=== PATIENT | female | born 1965 | race American Indian/Alaskan Native ===

== ENCOUNTER 2017-04-09 23:05 | Emergency (ER) | payer OTHER ==
[2017-04-10 00:59] LABS: Alanine Aminotransferase 16 units/L (7-56); Albumin 3.7 g/dL (3.9-5); Alkaline Phosphatase 104 units/L (35-129); Anion Gap 16 mmol/L; BUN/Creatinine Ratio 10; Blood Urea Nitrogen 10 mg/dL (7-17); Calcium 8.9 mg/dL (8.4-10.2); Carbon Dioxide 25 mmol/L (22-30); Chloride 100.2 mmol/L (98-107); Glucose 126 mg/dL (65-100); Lipase 37 units/L (13-60); Potassium 4.2 mmol/L (3.6-5.0); Sodium 137 mmol/L (137-145); Total Protein 7.3 g/dL (6.3-8.2)
[2017-04-10 01:01] LABS: Basophils % (Auto) 0.5 % (0.0-1.8); Eosinophils % (Auto) 1.3 % (0.0-4.3); Hematocrit 40.8 % (30.3-42.9); Hemoglobin 13.1 gm/dl (10.1-14.3); Mean Corpuscular HGB Conc 32 % (30-34); Mean Corpuscular Hemoglobin 28 pg (28-32); Mean Corpuscular Volume 87 fl (79-97); Platelet Count 281 K/mm3 (140-440); Red Blood Count 4.68 M/mm3 (3.65-5.03); Red Cell Distribution Width 15.2 % (13.2-15.2); White Blood Count 8.2 K/mm3 (4.5-11.0)
[2017-04-10 04:49] LABS: Bilirubin,Urine SM (Negative); Blood,Urine SM (Negative); Ketones,Urine NEG (Negative); Leukocyte Esterase,Urine TR (Negative); Mucus,Urine 2+ /HPF; Nitrite,Urine NEG (Negative)
[2017-04-10] MEDS ORDERED: SUBLIMAZE IV ONE (11:57)
[2017-04-10] MEDS ORDERED: PEPCID IV ONE (11:57)
[2017-04-10] MEDS ORDERED: ZOFRAN IV ONE (11:57)
--- NOTE | 2017-04-10 12:05 | Emergency Department Report ---
HPI - General Chief Complaint: Recheck/Abnormal Lab/Rx Time Seen by Provider: 04/10/17 11:52 - HPI HPI: Room 18 The patient is a 52-year-old female presenting with a chief complaint of abdominal pain. The patient states her pain began during Thanksgiving (2016) and then improve the following day. However after improvement the pain returned the same day. Patient's current pain is sharp and constant in nature associated with nausea and vomiting. Patient denies any history of fever. Patient denies radiation of the abdominal pain. The patient rarely gives her pain score of 10/10 Location: Abdomen Duration: [See above] Quality: Sharp Severity:10/10 Modifying factors: [see above] Context: [see above] Mode of transportation: [not driving] ED Past Medical Hx - Past Medical History Previous Medical History?: Yes Hx Hypertension: Yes Additional medical history: hypothyroid - Surgical History Past Surgical History?: Yes Additional Surgical History: x1 - Family History Family history: no significant - Social History Smoking Status: Never Smoker Substance Use Type: Alcohol (occasional) - Medications Home Medications: Home Medications Medication Instructions Recorded Confirmed Last Taken Type Cephalexin [Keflex] 500 mg PO Q8HR #30 capsule 09/01/15 Unknown Rx Ibuprofen [Motrin] 600 mg PO Q8H PRN #15 tablet 09/01/15 Unknown Rx traMADol [Ultram] 50 mg PO Q6HR PRN #20 tablet 09/04/15 Unknown Rx Famotidine [Pepcid] 20 mg PO BID #30 tablet 04/10/17 Unknown Rx Promethazine [Phenergan TAB] 25 mg PO Q6HR PRN #20 tab 04/10/17 Unknown Rx Promethazine [Phenergan] 25 mg SD Q6HR PRN #5 supp.rect 04/10/17 Unknown Rx traMADol [Ultram] 50 mg PO Q6HR PRN #14 tablet 04/10/17 Unknown Rx ED Review of Systems ROS: Stated complaint: ABDOMINAL PAIN,NAUSEA Other details as noted in HPI Constitutional: denies: fever ENT: other (no rhinorrhea) Endocrine: denies: unexplained weight loss Gastrointestinal: abdominal pain, nausea, vomiting. denies: diarrhea Genitourinary: denies: dysuria, hematuria Musculoskeletal: denies: back pain Physical Exam - Physical Exam Vital Signs: Vital Signs 04/10/17 04/10/17 04/10/17 00:05 02:05 05:46 Temperature 98.3 F 98.3 F 97.8 F Pulse Rate 87 79 77 Respiratory 18 20 18 Rate Blood Pressure 126/87 138/86 119/82 O2 Sat by Pulse 96 96 97 Oximetry Physical Exam: GENERAL: The patient is well-developed well-nourished female lying on stretcher not appearing to be in acute distress. [] HEENT: Normocephalic. Atraumatic. Extraocular motions are intact. Patient has moist mucous membranes. NECK: Supple. Trachea midline CHEST/LUNGS: Clear to auscultation. There is no respiratory distress noted. HEART/CARDIOVASCULAR: Regular. There is no tachycardia. There is no gallop rub or murmur. ABDOMEN: Abdomen is soft, with moderate discomfort to palpation in the midepigastric region. There is no rebound or guarding. Patient has normal bowel sounds. There is no abdominal distention. Absent Brown sign SKIN: There is no rash. There is no edema. There is no diaphoresis. NEURO: The patient is awake, alert, and oriented. The patient is cooperative. The patient has normal speech MUSCULOSKELETAL: There is no evidence of acute injury. ED Course Vital Signs 04/10/17 04/10/17 04/10/17 00:05 02:05 05:46 Temperature 98.3 F 98.3 F 97.8 F Pulse Rate 87 79 77 Respiratory 18 20 18 Rate Blood Pressure 126/87 138/86 119/82 O2 Sat by Pulse 96 96 97 Oximetry ED Medical Decision Making - Lab Data Result diagrams: 04/10/17 00:31 04/10/17 00:31 Laboratory Tests 04/10/17 04/10/17 04/10/17 00:31 00:31 00:31 WBC 8.2 RBC 4.68 Hgb 13.1 Hct 40.8 MCV 87 MCH 28 MCHC 32 RDW 15.2 Plt Count 281 Lymph % (Auto) 21.3 [place] % (Auto) 9.8 H Eos % (Auto) 1.3 Baso % (Auto) 0.5 Lymph # 1.7 [place] # 0.8 Eos # 0.1 Baso # 0.0 Seg Neutrophils % 67.1 Seg Neutrophils # 5.5 Sodium 137 Potassium 4.2 Chloride 100.2 Carbon Dioxide 25 Anion Gap 16 BUN 10 Creatinine 1.0 Estimated GFR > 60 BUN/Creatinine Ratio 10 Glucose 126 H Calcium 8.9 Total Bilirubin 0.30 AST 22 ALT 16 Alkaline Phosphatase 104 Total Creatine Kinase 367 H CK-MB (CK-2) 3.3 CK-MB (CK-2) Rel Index 0.8 Troponin T < 0.010 Total Protein 7.3 Albumin 3.7 L Albumin/Globulin Ratio 1.0 Lipase 37 Urine Color Urine Turbidity Urine pH Ur Specific [place] Urine Protein Urine Glucose (UA) Urine Ketones Urine Blood Urine Nitrite Ur Reducing Substances Urine Bilirubin Urine Ictotest Urine Urobilinogen Ur Leukocyte Esterase Urine WBC (Auto) Urine RBC (Auto) U Epithel Cells (Auto) Calcium Oxalate Crystal Amorphous Crystals Hyaline Casts Urine Mucus Urine HCG, Qual 04/10/17 Unknown WBC RBC Hgb Hct MCV MCH MCHC RDW Plt Count Lymph % (Auto) [place] % (Auto) Eos % (Auto) Baso % (Auto) Lymph # [place] # Eos # Baso # Seg Neutrophils % Seg Neutrophils # Sodium Potassium Chloride Carbon Dioxide Anion Gap BUN Creatinine Estimated GFR BUN/Creatinine Ratio Glucose Calcium Total Bilirubin AST ALT Alkaline Phosphatase Total Creatine Kinase CK-MB (CK-2) CK-MB (CK-2) Rel Index Troponin T Total Protein Albumin Albumin/Globulin Ratio Lipase Urine Color [place] Urine Turbidity Clear Urine pH 5.0 Ur Specific [place] 1.032 H Urine Protein 100 mg/dl Urine Glucose (UA) Neg Urine Ketones Neg Urine Blood Sm Urine Nitrite Neg Ur Reducing Substances Not Reportable Urine Bilirubin Sm Urine Ictotest Negative Urine Urobilinogen 2.0 Ur Leukocyte Esterase Tr Urine WBC (Auto) 7.0 H Urine RBC (Auto) 6.0 U Epithel Cells (Auto) 5.0 Calcium Oxalate Crystal 2+ Amorphous Crystals Few Hyaline Casts 15 Urine Mucus 2+ Urine HCG, Qual Negative - EKG Data -: EKG Interpreted by Sd EKG shows normal: sinus rhythm Rate: normal - EKG Data When compared to previous EKG there are: previous EKG unavailable Interpretation: nonspecific ST-T wave yang (T-wave inversion in lead 3) - Radiology Data Radiology results: report reviewed (CT abdomen and pelvis), image reviewed (CT abdomen and pelvis) CT ABDOMEN AND PELVIS WITH CONTRAST: 04/09/17 23:05:00 CLINICAL: Epigastric abdominal pain. COMPARISON: None. TECHNIQUE: Volumetric acquisition and 1.25 millimeter scan reconstructions after the uneventful intravenous injection of 100 cc Omnipaque 300. Consent was obtained prior to the administration of contrast. Oral contrast was not given. FINDINGS: Abdomen: Normal liver, bile ducts and gallbladder. Normal stomach, duodenum, pancreas and spleen. Normal adrenal glands. Bilateral benign renal cysts in otherwise normal kidneys. A 5 cm cyst in the mid right kidney and a 1.5 cm left upper pole renal cyst. No urinary calculi or mass. The renal collecting systems and ureters are nondilated. Moderate atherosclerotic calcification of the aorta and iliac arteries. The inferior vena cava is normal. The small bowel is normal.Normal ascending, transverse and descending colon. An appendix is not identified. No mass, lymphadenopathy or ascites.No pneumoperitoneum. Pelvis: Normal urinary bladder.Small fibroid uterus with a dominant 3.8 cm partially calcified fundal fibroid. Ovaries are not well demonstrated. No adnexal mass or free fluid. Normal rectum and sigmoid colon. Bone windows demonstrate no bone lesion. IMPRESSION:1. Negative abdomen was bilateral benign renal cysts. 2. Small fibroid uterus. Otherwise normal pelvis. Transcribed By: REF Dictated By: EDWARD SHAY MD Electronically Authenticated By: EDWARD SHAY MD Signed Date/Time: 04/10/171411 DD/ 05 TD/TT: 04/10/171411 - Differential Diagnosis pancreatitis, gastritis, peptic ulcer disease, colitis, ACS Critical care attestation.: If time is entered above; I have spent that time in minutes in the direct care of this critically ill patient, excluding procedure time. ED Disposition Clinical Impression: Abdominal pain Disposition: DC-01 TO HOME OR SELFCARE Is pt being admited?: No Does the pt Need Aspirin: No Condition: Stable Instructions: Abdominal Pain (ED) Additional Instructions: Return to the emergency department immediately should you develop worsening symptoms, fever, inability to tolerate food or liquid or any other concerns. 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 Please follow-up with him for further evaluation) Time of Disposition: 14:25
[2017-04-10] MEDS ORDERED: NACL ONE (13:20)
[2017-04-10 14:09] LABS: Creatine Kinase 367 units/L (30-135); Creatine Kinase MB 3.3 ng/mL (0.0-4.0)
--- NOTE | 2017-04-10 14:18 | Cat Scan Report ---
CT ABDOMEN AND PELVIS WITH CONTRAST: 04/09/17 23:05:00 CLINICAL: Epigastric abdominal pain. COMPARISON: None. TECHNIQUE: Volumetric acquisition and 1.25 millimeter scan reconstructions after the uneventful intravenous injection of 100 cc Omnipaque 300. Consent was obtained prior to the administration of contrast. Oral contrast was not given. FINDINGS: Abdomen: Normal liver, bile ducts and gallbladder. Normal stomach, duodenum, pancreas and spleen. Normal adrenal glands. Bilateral benign renal cysts in otherwise normal kidneys. A 5 cm cyst in the mid right kidney and a 1.5 cm left upper pole renal cyst. No urinary calculi or mass. The renal collecting systems and ureters are nondilated. Moderate atherosclerotic calcification of the aorta and iliac arteries. The inferior vena cava is normal. The small bowel is normal.Normal ascending, transverse and descending colon. An appendix is not identified. No mass, lymphadenopathy or ascites.No pneumoperitoneum. Pelvis: Normal urinary bladder.Small fibroid uterus with a dominant 3.8 cm partially calcified fundal fibroid. Ovaries are not well demonstrated. No adnexal mass or free fluid. Normal rectum and sigmoid colon. Bone windows demonstrate no bone lesion. IMPRESSION:1. Negative abdomen was bilateral benign renal cysts. 2. Small fibroid uterus. Otherwise normal pelvis.
[2017-04-10 14:49] VITALS: BP 130/70
== END 2017-04-10 14:50 | disposition home or self-care (01) ==
LOC: ED 23:05
DX: R10.9 Unspecified abdominal pain (principal); R11.2 Nausea with vomiting, unspecified; E03.9 Hypothyroidism, unspecified
CPT/HCPCS: 36415; 74177; 80053; 81001; 81025; 82550; 82553; 83690; 84484; 85025; 96374; 96375; 99284; J2405; J3010; Q9967

== ENCOUNTER 2018-01-19 21:26 | Inpatient (IN) | payer OTHER ==
[2018-01-19] MEDS ORDERED: ASPIRIN ONE (21:41)
[2018-01-19] MEDS ORDERED: NITROSTAT SL ONE (21:49)
--- NOTE | 2018-01-19 21:53 | Emergency Department Report ---
ED Chest Pain HPI - General Stated Complaint: CHEST PAIN Time Seen by Provider: 01/19/18 21:46 - History of Present Illness Initial Comments: Patient is a 52-year-old black female states that approximately 30 minutes prior to arrival she had acute onset of chest pressure. Patient states there is also shortness of breath or difficulty speaking. Patient states is a pressure-like sensation 8 out of 10 in severity. Patient states she's never had pain to this magnitude. Patient denies cough nausea vomiting or diaphoresis. She has a history of hypertension does not smoke. There is no significant past family history. Patient's surgical history is only a C- section. - Related Data Previous Rx's Medication Instructions Recorded Last Taken Type Ibuprofen [Motrin] 600 mg PO Q8H PRN #15 tablet 09/01/15 Unknown Rx cephALEXin [Keflex] 500 mg PO Q8HR #30 capsule 09/01/15 Unknown Rx traMADol [Ultram] 50 mg PO Q6HR PRN #20 tablet 09/04/15 Unknown Rx Famotidine [Pepcid] 20 mg PO BID #30 tablet 04/10/17 Unknown Rx Promethazine [Phenergan TAB] 25 mg PO Q6HR PRN #20 tab 04/10/17 Unknown Rx Promethazine [Phenergan] 25 mg DC Q6HR PRN #5 supp.rect 04/10/17 Unknown Rx traMADol [Ultram] 50 mg PO Q6HR PRN #14 tablet 04/10/17 Unknown Rx Allergies Allergy/AdvReac Type Severity Reaction Status Date / Time No Known Allergies Allergy Verified 09/01/15 15:06 Heart Score - HEART Score History: Moderately suspicious EKG: Non-specific Age: 45-65 Risk factors: 1-2 risk factors Troponin: < normal limit HEART Score: 4 ED Review of Systems ROS: Stated complaint: CHEST PAIN Other details as noted in HPI Comment: All other systems reviewed and negative ED Past Medical Hx - Past Medical History Hx Hypertension: Yes Additional medical history: hypothyroid - Surgical History Additional Surgical History: x1 - Social History Smoking Status: Never Smoker Substance Use Type: Alcohol (occasional) - Medications Home Medications: Home Medications Medication Instructions Recorded Confirmed Last Taken Type Ibuprofen [Motrin] 600 mg PO Q8H PRN #15 tablet 09/01/15 Unknown Rx cephALEXin [Keflex] 500 mg PO Q8HR #30 capsule 09/01/15 Unknown Rx traMADol [Ultram] 50 mg PO Q6HR PRN #20 tablet 09/04/15 Unknown Rx Famotidine [Pepcid] 20 mg PO BID #30 tablet 04/10/17 Unknown Rx Promethazine [Phenergan TAB] 25 mg PO Q6HR PRN #20 tab 04/10/17 Unknown Rx Promethazine [Phenergan] 25 mg DC Q6HR PRN #5 supp.rect 04/10/17 Unknown Rx traMADol [Ultram] 50 mg PO Q6HR PRN #14 tablet 04/10/17 Unknown Rx ED Physical Exam - General General appearance: alert, in no apparent distress, obese - Head Head exam: Present: atraumatic, normocephalic - Eye Eye exam: Present: normal appearance - ENT ENT exam: Present: mucous membranes moist - Neck Neck exam: Present: normal inspection - Respiratory Respiratory exam: Present: normal lung sounds bilaterally, respiratory distress (patient appears to be taking very shallow rapid breaths). Absent: wheezes, rales, rhonchi - Cardiovascular Cardiovascular Exam: Present: normal rhythm, tachycardia, normal heart sounds. Absent: systolic murmur, diastolic murmur, rubs, gallop - GI/Abdominal GI/Abdominal exam: Present: soft, normal bowel sounds. Absent: distended, tenderness, guarding, rebound - Extremities Exam Extremities exam: Present: normal inspection - Back Exam Back exam: Present: normal inspection - Neurological Exam Neurological exam: Present: alert, oriented X3 - Psychiatric Psychiatric exam: Present: normal affect, normal mood - Skin Skin exam: Present: warm, dry, intact, normal color. Absent: rash ED Course Vital Signs 01/19/18 01/19/18 01/19/18 21:30 21:58 22:01 Temperature 99.7 F H Pulse Rate 104 H 97 H 90 Respiratory 20 18 14 Rate Blood Pressure 177/86 O2 Sat by Pulse 99 100 98 Oximetry 01/19/18 01/19/18 01/19/18 22:15 22:31 22:45 Temperature Pulse Rate 84 94 H 91 H Respiratory 19 23 26 H Rate Blood Pressure 121/69 123/63 148/87 O2 Sat by Pulse 97 100 98 Oximetry SON score - Son Score Age > 65: (0) No Aspirin use within the Past 7 Days: (0) No 3 or more CAD Risk Factors: (0) No 2 or more Angina events in past 24 hrs: (0) No Known CAD with more than 50% Stenosis: (0) No Elevated Cardiac Markers: (0) No ST Deviation Greater than 0.5mm: (0) No SON Score: 0 ED Medical Decision Making - Lab Data Result diagrams: 01/19/18 21:55 01/19/18 21:55 - EKG Data -: EKG Interpreted by Me - EKG Data 01/19/18 23:52 EKG shows sinus tachycardia 103 normal axis normal intervals and no ST segment elevation or depressions there are Q waves in the septal leads patient is 2139 - Radiology Data Chest x-ray is within normal limits Ordering Physician: ILIANA ROWAN MD Date of Service: 01/19/18 Procedure(s) : CT angio chest Accession Number(s): [id number] cc: ILIANA ROWAN MD FINAL REPORT EXAM: CT ANGIO CHEST HISTORY: acute CP with sob, elevated ddimer TECHNIQUE: CT chest CT angiogram with reconstructions PRIORS: None. FINDINGS: There is no evidence of filling defect within the central pulmonary vasculature to suggest the presence of acute pulmonary embolus. No evidence of mediastinal pathologic lymph node enlargement Heart and great vessels are unremarkable. The aorta is normal in caliber. No focal pulmonary infiltrate identified. No pleural fluid collection seen. No acute pulmonary abnormality noted. Visualized portion of the upper abdomen demonstrates no acute change. IMPRESSION: Negative. No CT evidence of acute pulmonary embolus Transcribed By: CAYLA Dictated By: MIRA ALLISON MD Electronically Authenticated By: MIRA ALLISON MD Signed Date/Time: 01/19/18 6465 - Medical Decision Making Patient is a 52-year-old black female who has a heart score 4. Patient's chest discomfort is improved after nitroglycerin and blood pressure control. Patient ruled out for PE. Patient be admitted to hospitalist service for cardiac workup Critical Care Time: Yes (30) Critical care attestation.: If time is entered above; I have spent that time in minutes in the direct care of this critically ill patient, excluding procedure time. ED Disposition Clinical Impression: Chest pain Qualifiers: Chest pain type: unspecified Qualified Code(s): R07.9 - Chest pain, unspecified Disposition: OP ADMIT IP TO THIS HOSP Is pt being admited?: Yes Does the pt Need Aspirin: No Condition: Stable Instructions: Chest Pain (ED) Time of Disposition: 23:57
[2018-01-19] MEDS ORDERED: ASPIRIN PO ONE (21:59)
[2018-01-19 22:04] LABS: Basophils # (Auto) 0.1 K/mm3 (0.0-0.1); Basophils % (Auto) 1.2 % (0.0-1.8); Eosinophils # (Auto) 0.2 K/mm3 (0.0-0.4); Eosinophils % (Auto) 2.7 % (0.0-4.3); Hematocrit 36.3 % (30.3-42.9); Hemoglobin 11.7 gm/dl (10.1-14.3); Lymphocytes # (Auto) 2.3 K/mm3 (1.2-5.4); Lymphocytes % (Auto) 28.7 % (13.4-35.0); Mean Corpuscular HGB Conc 32 % (30-34); Mean Corpuscular Hemoglobin 28 pg (28-32); Mean Corpuscular Volume 87 fl (79-97); Monocytes # (Auto) 0.6 K/mm3 (0.0-0.8); Monocytes % (Auto) 8.2 % (0.0-7.3); Platelet Count 266 K/mm3 (140-440); Red Blood Count 4.17 M/mm3 (3.65-5.03); Red Cell Distribution Width 15.4 % (13.2-15.2)
[2018-01-19 22:15] LABS: INR 0.87 (0.87-1.13); Partial Thromboplastin Time 29.7 Sec. (24.2-36.6)
[2018-01-19] MEDS ORDERED: LOPRESSOR PO ONE (22:18)
--- NOTE | 2018-01-19 22:20 | XRay Report ---
FINAL REPORT EXAM: XR CHEST 1V AP HISTORY: Chest Pain TECHNIQUE: upright single view chest PRIORS: None. FINDINGS: Cardiac and mediastinal contours are unremarkable. No focal pulmonary infiltrate is identified. No pleural fluid collection seen. Pulmonary vasculature is unremarkable. Mild scarring noted at the left lower lobe distribution IMPRESSION: Negative single-view chest
[2018-01-19 22:23] LABS: BUN/Creatinine Ratio 16; Blood Urea Nitrogen 14 mg/dL (7-17); Calcium 9.6 mg/dL (8.4-10.2); Hemolysis Index 3
--- NOTE | 2018-01-19 23:36 | Cat Scan Report ---
FINAL REPORT EXAM: CT ANGIO CHEST HISTORY: acute CP with sob, elevated ddimer TECHNIQUE: CT chest CT angiogram with reconstructions PRIORS: None. FINDINGS: There is no evidence of filling defect within the central pulmonary vasculature to suggest the presence of acute pulmonary embolus. No evidence of mediastinal pathologic lymph node enlargement Heart and great vessels are unremarkable. The aorta is normal in caliber. No focal pulmonary infiltrate identified. No pleural fluid collection seen. No acute pulmonary abnormality noted. Visualized portion of the upper abdomen demonstrates no acute change. IMPRESSION: Negative. No CT evidence of acute pulmonary embolus
[2018-01-20] MEDS ORDERED: SODIUM CHLORIDE FLUSH SYRINGE 10 ML IV PRN (00:51)
[2018-01-20] MEDS ORDERED: ZOFRAN IV PRN (00:51)
[2018-01-20] MEDS ORDERED: MORPHINE IV PRN (00:51)
[2018-01-20] MEDS ORDERED: AMBIEN PO PRN (00:51)
[2018-01-20] MEDS ORDERED: TYLENOL PO PRN (00:51)
[2018-01-20] MEDS ORDERED: APRESOLINE IV PRN (00:57)
[2018-01-20] MEDS ORDERED: NACL 0.9% 1000 ML 1,000 ML IV SCH (01:00)
--- NOTE | 2018-01-20 04:17 | History and Physical Report ---
History of Present Illness Date of examination: 01/20/18 Date of admission: 01/19/18 23:57 Chief complaint: Chest pain History of present illness: Patient is a 52-year-old -[place] female with history of hypertension and hypothyroidism who presented to the ED on account of few hours history of midsternal chest pain. She described it as sharp in character, rated 10 over 10 , constant in duration and radiates into the left arm. No known aggravating or relieving factors. She has associated shortness of breath, palpitation and dizziness. No diaphoresis, leg swelling, cough, fever, chills, headaches, nausea, vomiting, syncope or loss of consciousness. No abdominal pain, constipation, diarrhea, dysuria or frequency. No prior history of stress test. Past History Past Medical History: hypertension, hypothyroidism, other (morbid obesity) Past Surgical History: Other (fibroid surgery) Social history: smoking (smoked cigarettes for 20 years, but quit 2 years ago. She denies alcohol or illicit drug use) Family history: diabetes Medications and Allergies Allergies Allergy/AdvReac Type Severity Reaction Status Date / Time No Known Allergies Allergy Verified 09/01/15 15:06 Home Medications Medication Instructions Recorded Confirmed Last Taken Type Ibuprofen [Motrin] 600 mg PO Q8H PRN #15 tablet 09/01/15 Unknown Rx cephALEXin [Keflex] 500 mg PO Q8HR #30 capsule 09/01/15 Unknown Rx traMADol [Ultram] 50 mg PO Q6HR PRN #20 tablet 09/04/15 Unknown Rx Famotidine [Pepcid] 20 mg PO BID #30 tablet 04/10/17 Unknown Rx Promethazine [Phenergan TAB] 25 mg PO Q6HR PRN #20 tab 04/10/17 Unknown Rx Promethazine [Phenergan] 25 mg PA Q6HR PRN #5 supp.rect 04/10/17 Unknown Rx traMADol [Ultram] 50 mg PO Q6HR PRN #14 tablet 04/10/17 Unknown Rx Active Meds: Active Medications Acetaminophen (Tylenol) 650 mg PO Q4H PRN PRN Reason: Pain MILD(1-3)/Fever >100.5/C[place]ER Acetaminophen/Hydrocodone Bitart ([place] 5/325) 1 each PO Q6H PRN PRN Reason: Pain, Moderate (4-6) Famotidine (Pepcid) 20 mg PO BID MAUREEN Hydralazine HCl (Apresoline) 10 mg IV Q6H PRN PRN Reason: Blood Pressure Sodium Chloride (Nacl 0.9% 1000 Ml) 1,000 mls @ 75 mls/hr IV DIRECT MAUREEN Metoprolol Tartrate (Lopressor) 25 mg PO BID MAUREEN Morphine Sulfate (Morphine) 2 mg IV Q4H PRN PRN Reason: Pain, Moderate (4-6) Ondansetron HCl (Zofran) 4 mg IV Q8H PRN PRN Reason: Nausea And Vomiting Sodium Chloride (Sodium Chloride Flush Syringe 10 Ml) 10 ml IV BID MAUREEN Sodium Chloride (Sodium Chloride Flush Syringe 10 Ml) 10 ml IV PRN PRN PRN Reason: LINE FLUSH Zolpidem Tartrate (Ambien) 5 mg PO QHS PRN PRN Reason: Insomnia Review of Systems All systems: negative (except as documented in the HPI, all other systems were reviewed and negative) Exam - Constitutional Vitals: Temp Pulse Resp BP Pulse Ox 99.7 F H 82 19 124/83 100 01/19/18 21:30 01/20/18 01:56 01/20/18 01:31 01/20/18 01:56 01/20/18 01:56 General appearance: Present: no acute distress, obese - EENT Eyes: Present: PERRL, EOM intact ENT: hearing intact, clear oral mucosa - Neck Neck: Present: supple, normal ROM - Respiratory Respiratory effort: normal Respiratory: bilateral: CTA - Cardiovascular Rhythm: regular Heart Sounds: Present: S1 & S2. Absent: rub, click - Extremities Extremities: pulses symmetrical Extremity abnormal: edema (in BLE) - Abdominal General gastrointestinal: Present: soft, non-tender, normal bowel sounds - Integumentary Integumentary: Present: clear, warm, dry - Musculoskeletal Musculoskeletal: gait normal, strength equal bilaterally - Psychiatric Psychiatric: appropriate mood/affect, intact judgment & insight - Neurologic Neurologic: CNII-XII intact, moves all extremities Results - Labs CBC & Chem 7: 01/19/18 21:55 01/19/18 21:55 Labs: Laboratory Last Values WBC 7.9 K/mm3 (4.5-11.0) 01/19/18 21:55 RBC 4.17 M/mm3 (3.65-5.03) 01/19/18 21:55 Hgb 11.7 gm/dl (10.1-14.3) 01/19/18 21:55 Hct 36.3 % (30.3-42.9) 01/19/18 21:55 MCV 87 fl (79-97) 01/19/18 21:55 MCH 28 pg (28-32) 01/19/18 21:55 MCHC 32 % (30-34) 01/19/18 21:55 RDW 15.4 % (13.2-15.2) H 01/19/18 21:55 Plt Count 266 K/mm3 (140-440) 01/19/18 21:55 Lymph % (Auto) 28.7 % (13.4-35.0) 01/19/18 21:55 [place] % (Auto) 8.2 % (0.0-7.3) H 01/19/18 21:55 Eos % (Auto) 2.7 % (0.0-4.3) 01/19/18 21:55 Baso % (Auto) 1.2 % (0.0-1.8) 01/19/18 21:55 Lymph # 2.3 K/mm3 (1.2-5.4) 01/19/18 21:55 [place] # 0.6 K/mm3 (0.0-0.8) 01/19/18 21:55 Eos # 0.2 K/mm3 (0.0-0.4) 01/19/18 21:55 Baso # 0.1 K/mm3 (0.0-0.1) 01/19/18 21:55 Seg Neutrophils % 59.2 % (40.0-70.0) 01/19/18 21:55 Seg Neutrophils # 4.6 K/mm3 (1.8-7.7) 01/19/18 21:55 PT 12.3 Sec. (12.2-14.9) 01/19/18 21:55 INR 0.87 (0.87-1.13) 01/19/18 21:55 APTT 29.7 Sec. (24.2-36.6) 01/19/18 21:55 D-Dimer 472.92 ng/mlDDU (0-234) H 01/19/18 21:55 Sodium 140 mmol/L (137-145) 01/19/18 21:55 Potassium 4.3 mmol/L (3.6-5.0) 01/19/18 21:55 Chloride 101.7 mmol/L (98-107) 01/19/18 21:55 Carbon Dioxide 28 mmol/L (22-30) 01/19/18 21:55 Anion Gap 15 mmol/L 01/19/18 21:55 BUN 14 mg/dL (7-17) 01/19/18 21:55 Creatinine 0.9 mg/dL (0.7-1.2) 01/19/18 21:55 Estimated GFR > 60 ml/min 01/19/18 21:55 BUN/Creatinine Ratio 16 % 01/19/18 21:55 Glucose 122 mg/dL (65-100) H 01/19/18 21:55 Calcium 9.6 mg/dL (8.4-10.2) 01/19/18 21:55 Troponin T < 0.010 ng/mL (0.00-0.029) 01/20/18 00:23 Assessment and Plan Assessment and plan: Chest pain, rule out ACS -Chest pain pathway -NST for further evaluation SIRS without acute infection -Will monitor clinically Uncontrolled hypertension -BP improved s/p medication in the ED -Will continue metoprolol and when necessary hydralazine History of hypothyroidism -Will check TSH level -Will resume home synthroid Morbid obesity with BMI of 60.8 -Weight loss recommended Prophylaxis -GI prophylaxis with Famotidine Disposition: For discharge if stress test is negative
[2018-01-20 06:27] LABS: Chol/HDL Ratio 4.5 %
[2018-01-20] MEDS ORDERED: LEXISCAN IV ONE (08:10)
[2018-01-20] MEDS: NORCO 5/325 PO PRN ×3 (08:27→16:38)
[2018-01-20 09:09] VITALS: BP 138/92
[2018-01-20] MEDS ORDERED: SODIUM CHLORIDE FLUSH SYRINGE 10 ML IV SCH (10:00)
[2018-01-20] MEDS ORDERED: PEPCID PO SCH (10:00)
[2018-01-20] MEDS ORDERED: LOPRESSOR PO SCH (10:00)
--- NOTE | 2018-01-20 13:25 | Progress Note ---
Assessment and Plan - Patient Problems (1) Chest pain Current Visit: Yes Status: Acute Qualifiers: Chest pain type: unspecified Qualified Code(s): R07.9 - Chest pain, unspecified Plan to address problem: At present patient has atypical presentation of chest pain. Could not sit for nuclear scanner. Still has some shortness of breath. Workup so far has been negative negative echocardiogram unremarkable CTA unremarkable. Recommendation was be from E weight loss outpatient follow-up with cardiology. And pulmonary workup with pulmonary function tests and sleep study. Patient appears from clinical exam to have obesity hypoventilation syndrome as well as sleep apnea. We'll ask cardiology recommendations how to proceed since we cannot perform stress test. Currently has exams negative. (2) Hypertension Current Visit: Yes Status: Acute (3) Hypothyroidism (acquired) Current Visit: Yes Status: Acute (4) Morbid obesity due to excess calories Current Visit: Yes Status: Acute Subjective Date of service: 01/20/18 Principal diagnosis: chest pain Interval history: Patient presented with atypical chest pain mostly appears to be short of breath. Discuss case with patient and son. At the bedside all questions and concerns answered to the patient's and son's satisfaction. Hospital course was complicated by patient unable to perform stress test secondary to obesity. Recent Cunningham today had some atypical shortness of breath. Was consistent with obesity hypoventilation syndrome versus atypical chest pain. Objective - Constitutional Vitals: Vital Signs - 12hr 01/20/18 01/20/18 01/20/18 01:31 01:56 04:09 Temperature Pulse Rate 82 82 Pulse Rate [ From Monitor] Respiratory 19 Rate Blood Pressure 129/69 124/83 163/111 Blood Pressure [Left] O2 Sat by Pulse 100 100 Oximetry 01/20/18 01/20/18 01/20/18 04:20 04:57 08:37 Temperature 97.8 F 98.6 F Pulse Rate 82 83 Pulse Rate [ From Monitor] Respiratory 18 18 Rate Blood Pressure 162/72 138/92 Blood Pressure 144/94 [Left] O2 Sat by Pulse 98 100 Oximetry 01/20/18 01/20/18 10:00 10:03 Temperature Pulse Rate 83 Pulse Rate [ 83 From Monitor] Respiratory 18 Rate Blood Pressure 138/92 Blood Pressure [Left] O2 Sat by Pulse 100 Oximetry General appearance: Present: no acute distress - EENT Eyes: PERRL, EOM intact ENT: hearing intact, clear oral mucosa, dentition normal - Neck Neck: supple, normal ROM - Respiratory Respiratory effort: normal Respiratory: right: CTA (no wheezing.) - Cardiovascular Rhythm: regular Heart Sounds: Present: S1 & S2 Extremities: no ischemia, pulses intact, pulses symmetrical, No edema, normal temperature, normal color Extremity abnormal: edema - Gastrointestinal General gastrointestinal: Present: soft, non-tender, normal bowel sounds, other (obese). Absent: hepatomegaly, splenomegaly - Integumentary Integumentary: clear, warm, dry - Musculoskeletal Musculoskeletal: strength equal bilaterally, other (generalized weakness secondary to morbid obesity) - Psychiatric Psychiatric: memory intact, appropriate mood/affect, intact judgment & insight - Labs CBC & Chem 7: 01/19/18 21:55 01/19/18 21:55 Labs: Abnormal lab results 01/19/18 01/19/18 01/19/18 Range/Units 21:55 21:55 21:55 RDW 15.4 H (13.2-15.2) % Mcdowell % (Auto) 8.2 H (0.0-7.3) % D-Dimer 472.92 H (0-234) ng/mlDDU Glucose 122 H (65-100) mg/dL Cholesterol (50-199) mg/dL LDL Cholesterol Direct (50-130) mg/dL 01/20/18 Range/Units 04:39 RDW (13.2-15.2) % Mcdowell % (Auto) (0.0-7.3) % D-Dimer (0-234) ng/mlDDU Glucose (65-100) mg/dL Cholesterol 225 H (50-199) mg/dL LDL Cholesterol Direct 171 H (50-130) mg/dL
[2018-01-20] MEDS ORDERED: TORADOL IV PRN (14:18)
--- NOTE | 2018-01-20 14:22 | Consultation ---
History of Present Illness Consult date: 01/20/18 Consult reason: chest pain History of present illness: The patient is a 52-year-old woman with a history of morbid obesity, and hypertension. No prior cardiac history. She presented to the hospital with a one-day history of nonexertional chest pain. She reports substernal pressure, which is pleuritic, and worse with coughing, and positional with movement of her thorax. Workup so far includes ECG that was normal sinus rhythm, normal ECG. Cardiac enzymes were normal. A chest x-ray was reported negative. A CT of the chest was negative for pulmonary embolism. Cardiac consultation was requested. It is noted that the patient exceeds the weight limit for cardiac stress testing. Past History Past Medical History: hypertension, hypothyroidism, other (morbid obesity) Past Surgical History: Other (fibroid surgery) Social history: smoking (smoked cigarettes for 20 years, but quit 2 years ago. She denies alcohol or illicit drug use) Family history: diabetes Medications and Allergies Allergies Allergy/AdvReac Type Severity Reaction Status Date / Time No Known Allergies Allergy Verified 09/01/15 15:06 Home Medications Medication Instructions Recorded Confirmed Last Taken Type Ibuprofen [Motrin] 600 mg PO Q8H PRN #15 tablet 09/01/15 Unknown Rx cephALEXin [Keflex] 500 mg PO Q8HR #30 capsule 09/01/15 Unknown Rx traMADol [Ultram] 50 mg PO Q6HR PRN #20 tablet 09/04/15 Unknown Rx Famotidine [Pepcid] 20 mg PO BID #30 tablet 04/10/17 Unknown Rx Promethazine [Phenergan TAB] 25 mg PO Q6HR PRN #20 tab 04/10/17 Unknown Rx Promethazine [Phenergan] 25 mg AL Q6HR PRN #5 supp.rect 04/10/17 Unknown Rx traMADol [Ultram] 50 mg PO Q6HR PRN #14 tablet 04/10/17 Unknown Rx Active Meds: Active Medications Acetaminophen (Tylenol) 650 mg PO Q4H PRN PRN Reason: Pain MILD(1-3)/Fever >100.5/CUTLER Acetaminophen/Hydrocodone Bitart ([place] 5/325) 1 each PO Q6H PRN PRN Reason: Pain, Moderate (4-6) Last Admin: 01/20/18 14:02 Dose: 1 each Famotidine (Pepcid) 20 mg PO BID [facility] Last Admin: 01/20/18 10:04 Dose: 20 mg Hydralazine HCl (Apresoline) 10 mg IV Q6H PRN PRN Reason: Blood Pressure Sodium Chloride (Nacl 0.9% 1000 Ml) 1,000 mls @ 75 mls/hr IV DIRECT [facility] Last Admin: 01/20/18 06:55 Dose: 75 mls/hr Metoprolol Tartrate (Lopressor) 25 mg PO BID [facility] Last Admin: 01/20/18 10:03 Dose: 25 mg Morphine Sulfate (Morphine) 2 mg IV Q4H PRN PRN Reason: Pain, Moderate (4-6) Ondansetron HCl (Zofran) 4 mg IV Q8H PRN PRN Reason: Nausea And Vomiting Pneumococcal Polyvalent Vaccine (Pneumovax 23) 0.5 ml IM .ONCE ONE Stop: 01/21/18 12:01 Sodium Chloride (Sodium Chloride Flush Syringe 10 Ml) 10 ml IV BID [facility] Last Admin: 01/20/18 10:04 Dose: 10 ml Sodium Chloride (Sodium Chloride Flush Syringe 10 Ml) 10 ml IV PRN PRN PRN Reason: LINE FLUSH Zolpidem Tartrate (Ambien) 5 mg PO QHS PRN PRN Reason: Insomnia Review of Systems Cardiovascular: chest pain, shortness of breath, no orthopnea, no palpitations, no rapid/irregular heart beat, no edema, no syncope, no lightheadedness Physical Examination Vital Signs Temp Pulse Resp BP Pulse Ox 99.7 F H 104 H 20 177/86 99 01/19/18 21:30 01/19/18 21:30 01/19/18 21:30 01/19/18 21:30 01/19/18 21:30 General appearance: no acute distress HEENT: Positive: PERRL Neck: Positive: neck supple Cardiac: Positive: Reg Rate and Rhythm Lungs: Positive: Decreased Breath Sounds Neuro: Positive: Grossly Intact Abdomen: Positive: Soft Female genitourinary: deferred Skin: Positive: Clear Extremities: Absent: edema Results 01/19/18 21:55 01/19/18 21:55 Coagulation 01/19/18 Range/Units 21:55 PT 12.3 (12.2-14.9) Sec. INR 0.87 (0.87-1.13) APTT 29.7 (24.2-36.6) Sec. Lipids 01/20/18 Range/Units 04:39 Triglycerides 122 (2-149) mg/dL Cholesterol 225 H (50-199) mg/dL HDL Cholesterol 50 (40-59) mg/dL Cholesterol/HDL Ratio 4.50 % CBC 01/19/18 Range/Units 21:55 WBC 7.9 (4.5-11.0) K/mm3 RBC 4.17 (3.65-5.03) M/mm3 Hgb 11.7 (10.1-14.3) gm/dl Hct 36.3 (30.3-42.9) % Plt Count 266 (140-440) K/mm3 Lymph # 2.3 (1.2-5.4) K/mm3 [facility] # 0.6 (0.0-0.8) K/mm3 Eos # 0.2 (0.0-0.4) K/mm3 Baso # 0.1 (0.0-0.1) K/mm3 Comprehensive Metabolic Panel 01/19/18 Range/Units 21:55 Sodium 140 (137-145) mmol/L Potassium 4.3 (3.6-5.0) mmol/L Chloride 101.7 (98-107) mmol/L Carbon Dioxide 28 (22-30) mmol/L BUN 14 (7-17) mg/dL Creatinine 0.9 (0.7-1.2) mg/dL Glucose 122 H (65-100) mg/dL Calcium 9.6 (8.4-10.2) mg/dL EKG interpretations - Telemetry EKG Rhythm: Sinus Rhythm Assessment and Plan - Patient Problems (1) Chest pain Current Visit: Yes Status: Acute Qualifiers: Chest pain type: unspecified Qualified Code(s): R07.9 - Chest pain, unspecified Plan to address problem: Patient has atypical chest pain which appears musculoskeletal by historical assessment. Initial cardiac workup as well as workup for pulmonary embolism is negative. We will treat with intravenous nonsteroidal anti-inflammatory.
--- NOTE | 2018-01-20 15:42 | Discharge Summary ---
Providers - Providers Date of Admission: 01/19/18 23:57 Date of discharge: 01/20/18 Attending physician: MARTHA SALDIVAR cardiology Primary care physician: FLOORLEADER Hospitalization Condition: Stable Hospital course: She presented with atypical chest pain more shortness of breath. Essentially workup negative unremarkable EKG cardiac isoenzymes negative CT angiogram negative. Presentation of chest pain consistent with obesity-related syndrome sleep apnea deconditioning. Patient will benefit from weight loss surgery if cannot lose weight. Her symptoms are secondary to obesity. Disposition: DC-01 TO HOME OR SELFCARE - Discharge Diagnoses (1) Chest pain Status: Acute Qualifiers: Chest pain type: unspecified Qualified Code(s): R07.9 - Chest pain, unspecified (2) Hypertension Status: Acute (3) Hypothyroidism (acquired) Status: Acute (4) Morbid obesity due to excess calories Status: Acute Comment: She will benefit from bariatric surgery. States she is attempting to lose weight for many years and continues to gain weight. It is now affecting her health causes of chest pain dyspnea on exertion and sleep apnea. Core Measure Documentation - Palliative Care Palliative Care/ Comfort Measures: Not Applicable - Core Measures Any of the following diagnoses?: none Exam - Constitutional Vitals: Temp Pulse Resp BP Pulse Ox 98.6 F 83 18 138/92 100 01/20/18 08:37 01/20/18 10:03 01/20/18 10:00 01/20/18 10:03 01/20/18 10:00 General appearance: Present: no acute distress, well-nourished - EENT Eyes: Present: PERRL ENT: hearing intact, clear oral mucosa - Neck Neck: Present: supple, normal ROM - Respiratory Respiratory effort: normal Respiratory: bilateral: CTA - Cardiovascular Heart Sounds: Present: S1 & S2. Absent: rub, click - Extremities Extremities: pulses symmetrical, No edema Peripheral Pulses: within normal limits - Abdominal General gastrointestinal: Present: soft, non-tender, non-distended, normal bowel sounds Female genitourinary: Present: normal - Integumentary Integumentary: Present: clear, warm, dry - Musculoskeletal Musculoskeletal: gait normal, strength equal bilaterally - Psychiatric Psychiatric: appropriate mood/affect, intact judgment & insight - Neurologic Neurologic: CNII-XII intact, moves all extremities Plan Activity: no restrictions, advance as tolerated Weight Bearing Status: Full Weight Bearing Diet: low fat, low cholesterol Special Instructions: other (follow-up primary care physician for physician social services assistant weight loss program.) Follow up with: PRIMARY CARE,MD [Primary Care Provider] - 3-5 Days
[2018-01-21] MEDS ORDERED: PNEUMOVAX 23 IM ONE (12:00)
== END 2018-01-20 16:54 | disposition home or self-care (01) | DRG 206 ==
LOC: ED 21:26 → 4A 23:57
PROVIDERS: ADMIT Internal Medicine; ATTEND Internal Medicine
DX: E66.2 Morbid (severe) obesity with alveolar hypoventilation (principal); Z68.44 Body mass index [BMI] 60.0-69.9, adult; R65.10 Systemic inflammatory response syndrome (SIRS) of non-infectious origin without acute organ dysfunction; Z23 Encounter for immunization; I10 Essential (primary) hypertension; E03.9 Hypothyroidism, unspecified; Z83.3 Family history of diabetes mellitus; Z87.891 Personal history of nicotine dependence; Z79.899 Other long term (current) drug therapy; Z71.3 Dietary counseling and surveillance
CPT/HCPCS: 36415; 71045; 71275; 80048; 80061; 84443; 84484; 85025; 85379; 85610; 85730; 93005; 93010; J7030; Q9967